=== PATIENT | male | born 1955 | race African-American/Black ===

== ENCOUNTER 2024-05-07 10:25 | Emergency (ER) | payer MEDICARE, OTHER ==
[~2024-05-07] VITALS: Ht 175.3 cm; Wt 59.0 kg
[~2024-05-07 10:25] MED LIST: METF-1211 PO
[2024-05-07 10:47] VITALS: TEMP 97.1
[2024-05-07 11:05] LABS: GLUCOMETER DEV NAME(LOC) ER.7; GLUCOSE,POINT OF CARE 337 MG/DL (70-110)
[2024-05-07 11:38] LABS: ANION GAP 2 mmol/L (8-16); CALCIUM, TOTAL 9.5 mg/dL (8.8-10.5); CARBON DIOXIDE 34 mmol/L (22-29); CHLORIDE 99 mmol/L (98-107); CREATININE 0.98 mg/dL (0.60-1.30); GLOMERULAR FILTR. RATE CALC > 60 mL/min (>60); GLUCOSE,RANDOM 346 mg/dL (70-110); POTASSIUM 4.1 mmol/L (3.5-5.1); SODIUM SERUM 135 mmol/L (136-145); UREA NITROGEN, BLOOD 14 mg/dL (7-18)
[2024-05-07 11:47] LABS: BASOPHILS % (AUTO) 0.6 % (0.0-2.0); EOSINOPHILS % (AUTO) 0.9 % (1.0-6.0); HEMATOCRIT 39.1 % (41-53); HEMOGLOBIN 12.5 g/dL (13.5-17.5); LYMPHOCYTES # (AUTO) 1.2 K/uL (1.0-4.8); LYMPHOCYTES % (AUTO) 28.2 % (22.0-44.0); MEAN CORPUSCULAR HGB CONC 31.9 G/dL (31.0-37.0); MEAN CORPUSCULAR VOLUME 94 fL (80-100); MONOCYTES # (AUTO) 0.5 K/uL (0.1-1.0); MONOCYTES % (AUTO) 11.7 % (2.0-9.0); NEUTROPHILS # (AUTO) 2.6 K/uL (1.8-7.7); NEUTROPHILS % (AUTO) 58.6 % (40.0-70.0); PLATELET COUNT (AUTO) 287 K/uL (150-450); RED BLOOD CELL COUNT(AUTO) 4.16 MIL/uL (4.50-5.90); RED CELL DISTRIBUTION WIDTH 15.8 % (11.5-14.5); WHITE BLOOD COUNT (AUTO) 4.4 K/uL (4.5-11.0)
[2024-05-07 12:11] LABS: TROPONIN I-HIGH SENSITIVITY 6 ng/L (<76)
[2024-05-07] MEDS ORDERED: OMEP20 PO (12:52)
[2024-05-07] MEDS ORDERED: METF-1185 PO (12:52)
[2024-05-07] MEDS ORDERED: ACET-66 PO (12:52)
[2024-05-07] MEDS ORDERED: MAG30ORA11 PO (12:52)
[2024-05-07 13:00] VITALS: BP 110/68; PULSE 84; RESP 14
== END 2024-05-07 13:19 | disposition home or self-care (01) ==
LOC: EMS 10:27
DX: K29.70 Gastritis, unspecified, without bleeding (principal); E11.65 Type 2 diabetes mellitus with hyperglycemia; F10.10 Alcohol abuse, uncomplicated; R07.89 Other chest pain; I10 Essential (primary) hypertension; Z91.119 Patient's noncompliance with dietary regimen due to unspecified reason
CPT/HCPCS: 71045; 80048; 82962; 84484; 85025; 93005; 99285; 36415-L1; 36415-TC